=== PATIENT | male | born 1980 | race Caucasian/White ===

== ENCOUNTER 2018-11-01 20:40 | Emergency (ER) | payer OTHER ==
[~2018-11-01] VITALS: Ht 167.6 cm; Wt 98.2 kg
[2018-11-01 20:44] VITALS: Ht 167.6 cm; Wt 98.2 kg
[2018-11-01] MEDS ORDERED: KETOROLAC 15 MG INJ IM STA (20:55)
[2018-11-01 21:11] VITALS: BP 127/78; PULSE 106; RESP 18
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
[2018-11-01] MEDS ORDERED: IBUP-1542 PO (22:29)
== END 2018-11-01 23:34 | disposition home or self-care (01) ==
LOC: E/R 20:40
DX: S93.401A Sprain of unspecified ligament of right ankle, initial encounter (principal); R60.0 Localized edema; R00.0 Tachycardia, unspecified; V19.9XXA Pedal cyclist (driver) (passenger) injured in unspecified traffic accident, initial encounter
CPT/HCPCS: 73610; 96372; J1885; Z7502